=== PATIENT | female | born 1980 | race African-American/Black ===

== ENCOUNTER 2019-03-25 21:10 | Emergency (ER) | payer OTHER ==
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
[2019-03-25 21:18] VITALS: TEMP 99.6; BMI 39.9
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
[2019-03-26 02:48] VITALS: BP 144/92; PULSE 92
== END 2019-03-26 02:48 | disposition home or self-care (01) ==
LOC: JER 21:10 → JERFT 21:10 → JER 03-26 02:48
DX: S09.93XA Unspecified injury of face, initial encounter (principal); S09.90XA Unspecified injury of head, initial encounter; Y04.0XXA Assault by unarmed brawl or fight, initial encounter; Y93.89 Activity, other specified; Y92.218 Other school as the place of occurrence of the external cause; Y99.0 Civilian activity done for income or pay
CPT/HCPCS: 70450-TC; 70486-TC; 84703; 99282-25